=== PATIENT | female | born 2000 | race Caucasian/White ===

== ENCOUNTER → 2021-07-31 11:27 | Outpatient (BNVA) | payer BC, SELFPAY | PROVIDERS: Family Provider Internal Medicine; Visit Provider Surgery | DX: K21.9 Gastro-esophageal reflux disease without esophagitis (principal); K59.09 Other constipation | CPT/HCPCS: 87635 ==

== ENCOUNTER 2021-08-06 06:46 | Day surgery (SDC) | payer BC, SELFPAY ==
[2021-08-01 10:50] VITALS: BMI 20.3
--- NOTE | 2021-08-06 06:27 | W.PM.OPSUD ---
Surgery/Procedure H&P Update DATE OF PROCEDURE: August 06, 2021 DATE H&P PERFORMED: 07/16/21 H&P UPDATE INFORMATION: I have reviewed H&P completed within last 30 days, I have examined patient prior to procedure and No changes to prior documentation PREOP DIAGNOSIS: Abdominal pain PRIMARY INDICATION FOR PROCEDURE: the same PLANNED PROCEDURE: Operation Date: 08/06/21 08:00 Proposed Procedures p EGD/colon [id number] K21.9 K59.09(Not Applicable) - Celso Blunt MD s Colonoscopy(Not Applicable) - Celso Blunt MD
--- NOTE | 2021-08-06 07:11 | ANES.PREANE2 ---
Pre-Anesthetic Assessment Pre-Anesthetic Assessment: Height/Weight: Height 1.6 m Weight 52.163 kg Preop Diagnosis: Abdominal cramps Proposed Procedure: Operation Date: 08/06/21 08:00 Proposed Procedures p EGD/colon [id number] K21.9 K59.09(Not Applicable) - Celso Blunt MD s Colonoscopy(Not Applicable) - Celso Blunt MD Familial anesthetic complications: none Was Beta Teetee taken within 24 hours: N/A Was Clonidine taken within 24 hours: N/A Last intake: > 8 hrs Social: Social History: No alcohol and No tobacco Exam: Pre-Anes Outpt Exam: alert, oriented x 3, clear to auscultation bilaterally and regular rate & rhythm Airway: Cervical ROM: WNL MP: 1 Dentition: Full Pulmonary: Comments: allegies w/ cough CV/HEM: Comments: PVCs and sometimes my blood pressure gets low 90s systolic GI: GI: GERD Anesthetic Plan: ASA status: 2 Anesthesia: MAC Risk of > 500 ml blood loss (7ml/kg in children): No PFSH Anesthesia PFSH: Medical History (Updated 07/18/21 @ 06:38 by Celso Blunt MD) GERD (gastroesophageal reflux disease) Social History Smoking and tobacco status: never smoked Female Reproductive History: Date of last menstrual period: 07/02/21 Data Anesthesia Cardiac Studies: No Data to Display
[2021-08-06 07:23] VITALS: BP 107/68; PULSE 72; RESP 16; TEMP 36.8; O2SAT 98
[2021-08-06] MEDS: sodium chloride 0.9% 1,000 ML 30 ML IV (07:39)
[2021-08-06 07:43] LABS: OR HCG Qualitative Urine Negative (Negative)
[2021-08-06 08:37] VITALS: PULSE 67; RESP 18; TEMP 36.3; O2SAT 99
[2021-08-06 08:40] VITALS: BP 107/62
[2021-08-06 08:50] VITALS: BP 114/68; PULSE 84; RESP 18; O2SAT 100
[2021-08-06 09:01] VITALS: BP 108/69; PULSE 83; RESP 18; O2SAT 100
--- NOTE | 2021-08-06 10:10 | ANE.PACU2 ---
Inpatient post-anesthesia follow up: Airway intact: Yes Vital signs: Temperature 97.4 F Pulse Rate 83 Respiratory Rate 18 Blood Pressure 108/69 Pulse Oximetry 100 Oxygen Delivery Me thod Room Air Oxygen Flow Rate 3 Fraction of Inspir ed Oxygen Hydration adequate: Yes Mental status: Baseline
[2021-08-07 11:22] LABS: H. Pylori / CLO Test Negative
== END 2021-08-06 09:46 | disposition home or self-care (01) ==
PROVIDERS: Anesthesiology; Visit Provider Surgery
PROC: 0DJ08ZZ Inspection of Upper Intestinal Tract, Via Natural or Artificial Opening Endoscopic (ICD-10-PCS; CPT 43235; principal; 2021-08-06 08:00)
PROC: 0DJD8ZZ Inspection of Lower Intestinal Tract, Via Natural or Artificial Opening Endoscopic (ICD-10-PCS; CPT 45378; 2021-08-06 08:00)
DX: K59.00 Constipation, unspecified (principal); K21.9 Gastro-esophageal reflux disease without esophagitis; K44.9 Diaphragmatic hernia without obstruction or gangrene; K29.70 Gastritis, unspecified, without bleeding
CPT/HCPCS: 43239; 45378; 81025; 84703; 87077; 96360; 96361; J2704; J7030

== ENCOUNTER 2021-12-23 07:34 | Outpatient (CLI) | payer BC, SELFPAY ==
--- NOTE | 2021-12-23 08:00 | US_ITS ---
WS: [id number] RIGHT UPPER QUADRANT ULTRASOUND HISTORY: R10.9 - Unspecified abdominal pain COMPARISON: None available. Liver: 13.5 cm in length. Normal size liver. No bile duct dilatation or mass. Portal Vein: Normal hepatopetal flow with monophasic waveform. Gallbladder: Normally distended gallbladder with no stones or wall thickening. CBD: 0.2 cm Pancreas: Normal size and echogenicity. Right kidney: 10.7 cm in length. Normal size and echogenicity. No hydronephrosis or mass. Aorta and IVC: Unremarkable abdominal aorta and IVC. No ascites. US/US gall bladder [id number] IMPRESSION: Normal RIGHT upper quadrant ultrasound.
== END 2021-12-23 07:35 | disposition home or self-care (01) ==
PROVIDERS: Visit Provider Surgery
DX: R10.9 Unspecified abdominal pain (principal)
CPT/HCPCS: 76705

== ENCOUNTER 2022-04-24 09:50 | Outpatient (CLI) | payer BC, SELFPAY ==
--- NOTE | 2022-04-24 10:00 | NM_ITS ---
WS: [id number] NUCLEAR MEDICINE HIDA SCAN WITH GALLBLADDER EJECTION FRACTION HISTORY: R11.0 - Nausea COMPARISON: RIGHT upper quadrant ultrasound 12/23/2021. TECHNIQUE: The patient was intravenously injected with 7.5 mCi of TC99m Mebrofenin. Immediate imaging over the right upper quadrant was followed by 5 minute image and additional images for a total of 60 minutes. Normal uptake of radiotracer throughout the liver. Activity identified in the gallbladder at 10 minutes and well distended by 60 minutes. Activity in the proximal small bowel was seen by 20 minutes. Good washout of the radiotracer from the liver by 60 minutes. The patient then drank 8 ounces of Ensure Plus. Ejection fraction at 60 minutes was 74%. Normal GB ej ection fraction is 35-75%. Post fatty meal symptoms: None. NM/NM hepatobiliary w phar* [id number] IMPRESSION: 1. Normal HIDA scan. 2. Normal gallbladder ejection fraction.
== END 2022-04-24 09:51 | disposition home or self-care (01) ==
LOC: RAD 09:51
PROVIDERS: Visit Provider Surgery
DX: R11.0 Nausea (principal)
CPT/HCPCS: 78227; A9537

== ENCOUNTER → 2023-10-29 08:15 | Outpatient (BNVA) | payer BC, SELFPAY | PROVIDERS: PCP Family Medicine; Referring Provider Registered Nurse; Visit Provider Nurse Practitioner Women's Health | DX: N92.6 Irregular menstruation, unspecified (principal) | CPT/HCPCS: 84146; 84439; 84443; 84481 ==

== ENCOUNTER → 2023-11-11 11:00 | Outpatient (BNVA) | payer BC, SELFPAY | PROVIDERS: PCP Family Medicine; Visit Provider Nurse Practitioner Women's Health | DX: N93.9 Abnormal uterine and vaginal bleeding, unspecified (principal); N92.6 Irregular menstruation, unspecified | CPT/HCPCS: 76830 ==

== ENCOUNTER → 2023-11-19 10:55 | Outpatient (BNVA) | payer BC, SELFPAY | PROVIDERS: PCP Family Medicine; Visit Provider Nurse Practitioner Women's Health | DX: N92.6 Irregular menstruation, unspecified (principal); R53.83 Other fatigue | CPT/HCPCS: 82306; 83036; 84402; 85025 ==

== ENCOUNTER → 2024-02-11 15:54 | Outpatient (BNVA) | payer BC, SELFPAY | PROVIDERS: PCP Family Medicine; Visit Provider Nurse Practitioner Women's Health | DX: Z12.4 Encounter for screening for malignant neoplasm of cervix (principal); E28.2 Polycystic ovarian syndrome; Z11.3 Encounter for screening for infections with a predominantly sexual mode of transmission | CPT/HCPCS: 86592; 86803; 87340; 87491; 87591; 87806; 88175 ==